=== PATIENT | male | born 1960 | race Caucasian/White ===

== ENCOUNTER 2018-02-22 15:24 | Emergency (ER) | payer OTHER ==
[~2018-02-22] VITALS: Ht 172.7 cm; Wt 95.3 kg
[~2018-02-22 15:24] MED LIST: ALEVE; ALEVE220 MG PO; ALLEGRA ALLERG180 MG PO; AQUAPHOR OINTM105 GM TP; ATARAX,VISTARIL25 MG PO; BENADRYL25 MG PO; CLARITIN,ALAVAR10 MG PO; KENALOG,ARISTOC80 GM TP; LISINOPRIL; LISINOPRIL-HCT1 EAC3 PO; LISINOPRIL5 MG PO; LOPRESSOR50 MG PO; METOPROLOL; NAPROSYN500 MG PO; NICOTINE PATCH1 EAC2 TD; PERCOCET 5/31 TABLET PO; PREDNISONE20 MG PO; TOPROL XL100 MG PO; TOPROL XL200 MG PO; VANCOMYCIN1.25 GM/25 IV
[2018-02-22 16:24] LABS: HEMOGLOBIN 14.3 G/DL (12.5-16.6); MCH 29.2 PG (29.0-34.0); MCV 85.9 FL (86-99); PLATELET COUNT 190 K/uL (156-360); RBC DIS.WIDTH-CV 13.7 % (11.8-14.6); RBC DIS.WIDTH-SD 42.8 % (39-53); RED BLOOD COUNT 4.89 M/uL (4.00-5.50); WHITE BLOOD COUNT 12.9 K/uL (4.1-10.2)
[2018-02-22 16:34] LABS: CHLORIDE 103 mEq/L (99-109); POTASSIUM 4.1 mEq/L (3.7-5.4); SODIUM 140 mEq/L (136-147)
[2018-02-22 16:35] LABS: GLUCOSE 159 mg/dL (70-99)
[2018-02-22 16:39] LABS: CREATININE 1.1 mg/dL (0.6-1.3); GFR ESTIMATE (CALCULATED) > 59 mL/min/ (58.99-99999)
[2018-02-22 16:40] LABS: UREA NITROGEN (BUN) 22 mg/dL (9-23)
[2018-02-22 17:00] LABS: ALBUMIN 3.9 g/dL (3.2-4.8)
[2018-02-22 17:03] LABS: TOTAL PROTEIN 7.2 g/dL (6.4-8.3)
[2018-02-22 17:05] LABS: TOTAL BILIRUBIN 0.3 mg/dL (0.0-1.0)
[2018-02-22 17:06] LABS: ALKALINE PHOSPHATASE 95 IU/L (3-129)
[2018-02-22 17:08] LABS: AST (GOT) 25 IU/L (2-34); DIRECT BILIRUBIN 0.1 mg/dL (0.0-0.3)
[2018-02-22 17:09] LABS: ALT (GPT) 31 IU/L (3-49)
[2018-02-22 17:12] LABS: TROP-I INTERPRETATION NEGATIVE; TROPONIN-I < 0.01 ng/mL (0.0-0.30)
[2018-02-22 18:38] VITALS: BP 158/96
== END 2018-02-22 18:40 | disposition left against medical advice (07) ==
LOC: EME 15:24
PROVIDERS: Physician Assistant
DX: R55 Syncope and collapse (principal); I10 Essential (primary) hypertension; E11.9 Type 2 diabetes mellitus without complications; F41.9 Anxiety disorder, unspecified; Z90.49 Acquired absence of other specified parts of digestive tract; F17.200 Nicotine dependence, unspecified, uncomplicated
CPT/HCPCS: 70450; 71046; 80048; 80076; 81003; 82948; 84484; 85027; 85379; 93005; 99281; 99285

== ENCOUNTER 2018-03-19 19:39 | Inpatient (IN) | payer OTHER ==
[~2018-03-19] VITALS: Ht 172.7 cm; Wt 95.2 kg
[2018-03-19 21:25] LABS: HEMATOCRIT 46.3 % (38.0-50.0); MCH 28.9 PG (29.0-34.0); MCHC 34.6 G/DL (30.0-36.0); MCV 83.6 FL (86-99); PLATELET COUNT 186 K/uL (156-360); RBC DIS.WIDTH-CV 13.6 % (11.8-14.6); RBC DIS.WIDTH-SD 41.7 % (39-53); RED BLOOD COUNT 5.54 M/uL (4.00-5.50); WHITE BLOOD COUNT 19.3 K/uL (4.1-10.2)
[2018-03-19 21:31] LABS: APPEARANCE CLEAR ((CLEAR)); BILIRUBIN NEGATIVE; BLOOD NEGATIVE; COLOR YELLOW ((YELLOW)); GLUCOSE (STRIP) NEGATIVE; KETONES NEGATIVE; LEUKOCYTES NEGATIVE; NITRITE NEGATIVE; PROTEIN (STRIP) 100; SPECIFIC GRAVITY 1.024 (1.000-1.030)
[2018-03-19 21:36] LABS: ALBUMIN 4.2 g/dL (3.2-4.8); CHLORIDE 100 mEq/L (99-109); POTASSIUM 4.2 mEq/L (3.7-5.4); SODIUM 137 mEq/L (136-147)
[2018-03-19 21:37] LABS: BACTERIA NONE SEEN /HPF; EPITHELIAL CELLS NONE SEEN /HPF; MUCUS TRACE /LPF; RED BLOOD CELLS 0-5 /HPF (0-5); UCUL ADDED? NO; WHITE BLOOD CELLS 0-5 /HPF (0-5)
[2018-03-19 21:38] LABS: GLUCOSE 179 mg/dL (70-99); TOTAL PROTEIN 8.1 g/dL (6.4-8.3)
[2018-03-19 21:40] LABS: TOTAL BILIRUBIN 0.7 mg/dL (0.0-1.0)
[2018-03-19 21:42] LABS: ALKALINE PHOSPHATASE 86 IU/L (3-129); CREATININE 1.3 mg/dL (0.6-1.3); GFR ESTIMATE (CALCULATED) > 59 mL/min/ (58.99-99999)
[2018-03-19 21:43] LABS: UREA NITROGEN (BUN) 17 mg/dL (9-23)
[2018-03-19 21:44] LABS: AST (GOT) 27 IU/L (2-34)
[2018-03-19 21:45] LABS: ALT (GPT) 39 IU/L (3-49)
[2018-03-19] MEDS ORDERED: ZESTRIL2.5 MG PO (22:58)
[2018-03-19] MEDS ORDERED: ASPIRIN81 M2 PO (22:58)
[2018-03-19] MEDS ORDERED: CHOLESTEROL PO (22:59)
[2018-03-20 04:00] VITALS: BP 140/94
[2018-03-20 04:23] LABS: BENZODIAZEPINES, URINE SCREEN Negative (200 ng/mL)
[2018-03-20 07:22] LABS: BASOPHIL (%) 0.2 % (0-1); EOSINOPHIL (%) 0.7 % (0-5); EOSINOPHIL COUNT 0.1 K/uL (0-0.3); HEMATOCRIT 39.3 % (38.0-50.0); IMMATURE GRANULOCYTE (%) 1.2 % (0.0-0.7); LYMPHOCYTE (%) 9.8 % (15-42); LYMPHOCYTE COUNT 1.3 K/uL (1.0-2.8); MCH 28.6 PG (29.0-34.0); MCHC 34.1 G/DL (30.0-36.0); MCV 83.8 FL (86-99); MONOCYTE (%) 3.6 % (3-12); MONOCYTE COUNT 0.5 K/uL (0-0.8); NEUTROPHIL (%) 84.5 % (45-76); NEUTROPHIL COUNT 10.8 K/uL (1.8-6.4); PLATELET COUNT 154 K/uL (156-360); RBC DIS.WIDTH-CV 13.6 % (11.8-14.6); RBC DIS.WIDTH-SD 41.7 % (39-53); RED BLOOD COUNT 4.69 M/uL (4.00-5.50); WHITE BLOOD COUNT 12.8 K/uL (4.1-10.2)
[2018-03-20 07:34] LABS: HEMOGLOBIN 13.4 G/DL (12.5-16.6)
[2018-03-20 08:02] VITALS: BP 174/81
[2018-03-20 08:31] LABS: CKMB RELATIVE INDEX 2.2 (0.0-3.9); CREATINE KINASE 45 IU/L (1-294); TOTAL CK 45 IU/L (1-294)
[2018-03-20 10:09] LABS: CHLORIDE 104 MEQ/L (99-109); CREATININE 1.2 MG/DL (0.6-1.3); GFR ESTIMATE (CALCULATED) > 59 mL/min/ (58.99-99999); GLUCOSE 183 mg/dL (70-99); POTASSIUM 3.9 MEQ/L (3.7-5.4); SODIUM 136 MEQ/L (136-147); UREA NITROGEN (BUN) 19 mg/dL (9-23)
[2018-03-20 11:39] VITALS: BP 141/85
[2018-03-20] MEDS ORDERED: LISINOPRIL-HCT1 EAC3 PO (12:09)
[2018-03-20] MEDS ORDERED: ATORVASTATIN CA20 MG PO (12:10)
[2018-03-20] MEDS ORDERED: ASPIR 8181 M1 PO (12:11)
[2018-03-20 16:50] VITALS: BP 154/80
[2018-03-20 20:00] VITALS: BP 144/87
[2018-03-21 00:40] VITALS: BP 135/75
[2018-03-21 04:25] VITALS: BP 136/79
[2018-03-21 06:05] LABS: BASOPHIL (%) 0.4 % (0-1); BASOPHIL COUNT 0.1 K/uL (0-0.1); EOSINOPHIL (%) 0.1 % (0-5); HEMOGLOBIN 13.1 G/DL (12.5-16.6); IMMATURE GRANULOCYTE (%) 3.4 % (0.0-0.7); LYMPHOCYTE (%) 8.8 % (15-42); LYMPHOCYTE COUNT 1.2 K/uL (1.0-2.8); MCH 28.6 PG (29.0-34.0); MCHC 34.5 G/DL (30.0-36.0); MONOCYTE COUNT 0.8 K/uL (0-0.8); NEUTROPHIL (%) 81.3 % (45-76); NEUTROPHIL COUNT 11.3 K/uL (1.8-6.4); PLATELET COUNT 180 K/uL (156-360); RBC DIS.WIDTH-CV 13.3 % (11.8-14.6); RBC DIS.WIDTH-SD 39.8 % (39-53); RED BLOOD COUNT 4.58 M/uL (4.00-5.50); WHITE BLOOD COUNT 13.8 K/uL (4.1-10.2)
[2018-03-21 06:40] LABS: CHLORIDE 104 MEQ/L (99-109); CREATININE 1.3 MG/DL (0.6-1.3); GFR ESTIMATE (CALCULATED) > 59 mL/min/ (58.99-99999); GLUCOSE 201 mg/dL (70-99); POTASSIUM 4.2 MEQ/L (3.7-5.4); SODIUM 138 MEQ/L (136-147); UREA NITROGEN (BUN) 23 mg/dL (9-23)
[2018-03-21 08:18] VITALS: BP 135/83
[2018-03-21] MEDS ORDERED: KEFLEX500 MG PO (14:52)
[2018-03-21] MEDS ORDERED: LAMISIL AT12 GM TP (14:55)
[2018-03-22 14:07] LABS: HEMOGLOBIN A1c (GLYCOHEMOGLOB) 8.5 % (Below 5.7)
== END 2018-03-21 15:36 | disposition home or self-care (01) | DRG 872 ==
LOC: EME 19:39 → 5SOUTH 03-20 02:27 → EDOF 03-20 02:27 → ENRESERV 03-20 02:30 → 5SOUTH 03-20 03:55
PROVIDERS: Hospitalist; Physician Assistant
DX: A41.9 Sepsis, unspecified organism (principal); L03.115 Cellulitis of right lower limb; B35.3 Tinea pedis; R73.9 Hyperglycemia, unspecified; T38.0X5A Adverse effect of glucocorticoids and synthetic analogues, initial encounter; R73.03 Prediabetes; I10 Essential (primary) hypertension; M10.9 Gout, unspecified; F17.200 Nicotine dependence, unspecified, uncomplicated; F41.9 Anxiety disorder, unspecified; G43.909 Migraine, unspecified, not intractable, without status migrainosus; F10.10 Alcohol abuse, uncomplicated; M25.611 Stiffness of right shoulder, not elsewhere classified; E66.9 Obesity, unspecified; E78.5 Hyperlipidemia, unspecified; G89.4 Chronic pain syndrome; F14.10 Cocaine abuse, uncomplicated; M19.90 Unspecified osteoarthritis, unspecified site; Z86.14 Personal history of Methicillin resistant Staphylococcus aureus infection; Z79.82 Long term (current) use of aspirin; Z68.31 Body mass index [BMI] 31.0-31.9, adult
CPT/HCPCS: 71046; 73030; 80048; 80053; 80306 90; 81003; 82306; 82550; 82553; 82607; 82948; 83036; 83605; 84443; 85025; 85027; 87040; 87502; 93005; 99202; 99281; 99285; J1815; J1885; J1956; J2920; J7030